=== PATIENT | male | born 1940 | race Caucasian/White ===

== ENCOUNTER → 2021-02-27 | Outpatient (CLI) | payer MEDICARE, OTHER | END | disposition home or self-care (01) | LOC: CARD 12:00 | PROVIDERS: ATTEND Nurse Practitioner Family | DX: I35.1 Nonrheumatic aortic (valve) insufficiency (principal); G45.9 Transient cerebral ischemic attack, unspecified; R09.89 Other specified symptoms and signs involving the circulatory and respiratory systems; R41.3 Other amnesia ==

== ENCOUNTER → 2021-02-28 | Outpatient (CLI) | payer MEDICARE, OTHER | END | disposition home or self-care (01) | LOC: US 03:48 | PROVIDERS: ATTEND Nurse Practitioner Family | DX: G45.9 Transient cerebral ischemic attack, unspecified (principal); R41.3 Other amnesia; R09.89 Other specified symptoms and signs involving the circulatory and respiratory systems ==

== ENCOUNTER → 2021-11-18 | Outpatient (CLI) | payer MEDICARE, OTHER | END | disposition home or self-care (01) | LOC: RAD 14:20 | PROVIDERS: ATTEND Nurse Practitioner Family | DX: U07.1 COVID-19 (principal) ==

== ENCOUNTER → 2022-07-06 | Outpatient (CLI) | payer MEDICARE, OTHER ==
[2022-07-06 10:46] LABS: BASO % 0.3 % (0.0-1.0); EOS # 0.1 10*3/uL (0.0-0.4); EOS % 1.8 % (1.0-4.0); HEMATOCRIT 34.6 % (42.0-52.0); LYMPH # 0.8 10*3/uL (1.3-4.4); LYMPH % 21.4 % (27.0-41.0); MEAN CELL VOLUME 92.8 fl (80.0-94.0); MEAN CORPUSCULAR HGB 29.5 pg (27.0-31.0); MEAN CORPUSCULAR HGB CONC 31.8 g/dl (33.0-37.0); MONO # 0.2 10*3/uL (0.1-1.0); MONO % 5.7 % (3.0-9.0); NEUT # 2.7 10*3/uL (2.3-7.9); NEUT % 70.3 % (47.0-73.0); PLATELET COUNT AUTOMATED 195 10*3/uL (130-400); RED BLOOD COUNT 3.73 10*6/uL (4.50-5.90); WHITE BLOOD COUNT 3.8 10*3/uL (4.8-10.8)
[2022-07-06 10:53] LABS: ALKALINE PHOSPHATASE 92 U/L (46-116); BUN 12 mg/dl (9-23); CHLORIDE 103 mmol/L (98-107); CHOLESTEROL 109 mg/dL (<200); LDL CHOLESTEROL 59 mg/dL (9-159); SGPT/ALT 29 U/L (10-49); TOTAL PROTEIN 7.3 gm/dL (6.0-8.0); TRIGLYCERIDES 120 mg/dl (<150)
== END | disposition home or self-care (01) ==
LOC: LAB 10:00
PROVIDERS: ATTEND Nurse Practitioner Family
DX: E78.49 Other hyperlipidemia (principal); N52.9 Male erectile dysfunction, unspecified; J30.9 Allergic rhinitis, unspecified; D50.9 Iron deficiency anemia, unspecified

== ENCOUNTER → 2023-06-09 | Outpatient (CLI) | payer MEDICARE, OTHER ==
[2023-06-09 13:35] LABS: BASO % 0.3 % (0.0-1.0); EOS # 0.1 10*3/uL (0.0-0.4); EOS % 1.6 % (1.0-4.0); HEMATOCRIT 36.8 % (42.0-52.0); LYMPH % 33.4 % (27.0-41.0); MEAN CELL VOLUME 95.3 fl (80.0-94.0); MEAN CORPUSCULAR HGB 31.3 pg (27.0-31.0); MEAN CORPUSCULAR HGB CONC 32.9 g/dl (33.0-37.0); MEAN PLATELET VOLUME 10.2 fl (9.6-12.3); MONO # 0.2 10*3/uL (0.1-1.0); MONO % 7.1 % (3.0-9.0); NEUT # 1.8 10*3/uL (2.3-7.9); NEUT % 57.3 % (47.0-73.0); PLATELET COUNT AUTOMATED 133 10*3/uL (130-400); RED BLOOD COUNT 3.86 10*6/uL (4.50-5.90); RED CELL DISTRI WIDTH 12.6 % (0-14.5); WHITE BLOOD COUNT 3.1 10*3/uL (4.8-10.8)
== END | disposition home or self-care (01) ==
LOC: LAB 12:30
PROVIDERS: ATTEND Nurse Practitioner Family
DX: D50.9 Iron deficiency anemia, unspecified (principal); J30.9 Allergic rhinitis, unspecified; R79.89 Other specified abnormal findings of blood chemistry; M25.511 Pain in right shoulder; G89.29 Other chronic pain; M25.512 Pain in left shoulder

== ENCOUNTER → 2023-08-23 | Outpatient (CLI) | payer MEDICARE, OTHER | END | disposition home or self-care (01) | LOC: LAB 08-20 11:22 | PROVIDERS: ATTEND Nurse Practitioner Family | DX: R19.7 Diarrhea, unspecified (principal) ==

== ENCOUNTER → 2023-08-24 | Outpatient (CLI) | payer MEDICARE, OTHER | END | disposition home or self-care (01) | LOC: LAB 07:08 | PROVIDERS: ATTEND Nurse Practitioner Family | DX: R19.7 Diarrhea, unspecified (principal) ==

== ENCOUNTER → 2023-08-25 | Outpatient (CLI) | payer MEDICARE, OTHER | END | disposition home or self-care (01) | LOC: LAB 02:49 | PROVIDERS: ATTEND Nurse Practitioner Family | DX: R19.7 Diarrhea, unspecified (principal) ==

== ENCOUNTER → 2023-09-22 | Outpatient (CLI) | payer MEDICARE, OTHER ==
[2023-09-22 16:15] LABS: EOS # 0.1 10*3/uL (0.0-0.4); EOS % 3.2 % (1.0-4.0); HEMATOCRIT 33.7 % (42.0-52.0); LYMPH # 0.9 10*3/uL (1.3-4.4); LYMPH % 33.1 % (27.0-41.0); MEAN CELL VOLUME 94.9 fl (80.0-94.0); MEAN CORPUSCULAR HGB 32.4 pg (27.0-31.0); MEAN CORPUSCULAR HGB CONC 34.1 g/dl (33.0-37.0); MEAN PLATELET VOLUME 10.6 fl (9.6-12.3); MONO # 0.2 10*3/uL (0.1-1.0); MONO % 6.4 % (3.0-9.0); NEUT # 1.6 10*3/uL (2.3-7.9); NEUT % 56.9 % (47.0-73.0); PLATELET COUNT AUTOMATED 121 10*3/uL (130-400); RED BLOOD COUNT 3.55 10*6/uL (4.50-5.90); RED CELL DISTRI WIDTH 13.2 % (0-14.5); WHITE BLOOD COUNT 2.8 10*3/uL (4.8-10.8)
[2023-09-22 16:34] LABS: ALKALINE PHOSPHATASE 99 U/L (46-116); BUN 15 mg/dl (9-23); CHLORIDE 103 mmol/L (98-107); CHOLESTEROL 141 mg/dL (<200); LDL CHOLESTEROL 46 mg/dL (9-159); POTASSIUM 3.8 mmol/L (3.4-5.1); SGPT/ALT 37 U/L (5-49); TOTAL PROTEIN 6.8 gm/dL (6.0-8.0); TRIGLYCERIDES 332 mg/dl (<150)
== END | disposition home or self-care (01) ==
LOC: LAB 14:47
PROVIDERS: ATTEND Nurse Practitioner Family
DX: I10 Essential (primary) hypertension (principal); D50.9 Iron deficiency anemia, unspecified; N52.9 Male erectile dysfunction, unspecified

== ENCOUNTER → 2023-10-04 | Outpatient (CLI) | payer MEDICARE, OTHER ==
[2023-10-04 08:03] LABS: BASO % 0.3 % (0.0-1.0); EOS # 0.1 10*3/uL (0.0-0.4); EOS % 2.7 % (1.0-4.0); HEMATOCRIT 34.5 % (42.0-52.0); LYMPH % 33.2 % (27.0-41.0); MEAN CELL VOLUME 96.9 fl (80.0-94.0); MEAN PLATELET VOLUME 10.5 fl (9.6-12.3); MONO # 0.2 10*3/uL (0.1-1.0); NEUT # 1.7 10*3/uL (2.3-7.9); NEUT % 56.8 % (47.0-73.0); PLATELET COUNT AUTOMATED 138 10*3/uL (130-400); RED BLOOD COUNT 3.56 10*6/uL (4.50-5.90); RED CELL DISTRI WIDTH 12.9 % (0-14.5)
== END ==
LOC: LAB 07:34
PROVIDERS: ATTEND Nurse Practitioner Family
DX: R79.89 Other specified abnormal findings of blood chemistry (principal)

== ENCOUNTER → 2024-01-18 | Outpatient (CLI) | payer MEDICARE, OTHER ==
[2024-01-18 14:28] LABS: VITAMIN D, 25-HYDROXY 52.8 ng/mL (30-100)
== END | disposition home or self-care (01) ==
LOC: LAB 13:14
PROVIDERS: ATTEND Nurse Practitioner Family
DX: E83.52 Hypercalcemia (principal); D72.9 Disorder of white blood cells, unspecified; D50.9 Iron deficiency anemia, unspecified; R73.01 Impaired fasting glucose; J30.9 Allergic rhinitis, unspecified

== ENCOUNTER → 2024-09-25 | Outpatient (CLI) | payer MEDICARE, OTHER ==
[2024-09-25 12:34] LABS: MEAN CELL VOLUME 97.1 fl (80.0-94.0); MEAN CORPUSCULAR HGB 32.9 pg (27.0-31.0); MEAN CORPUSCULAR HGB CONC 33.9 g/dl (33.0-37.0); MEAN PLATELET VOLUME 10.8 fl (9.6-12.3); PLATELET COUNT AUTOMATED 141 10*3/uL (130-400); RED CELL DISTRI WIDTH 12.5 % (0-14.5); WHITE BLOOD COUNT 3.4 10*3/uL (4.8-10.8)
[2024-09-25 12:58] LABS: MANUAL DIFF REFLEX YES
[2024-09-25 13:04] LABS: TOTAL CELLS COUNTED 100 #CELLS
[2024-09-25 13:05] LABS: OVALOCYTES FEW
[2024-09-25 13:06] LABS: PLATELET SUFFICIENCY NORMAL (NORMAL)
[2024-09-25 13:23] LABS: ALKALINE PHOSPHATASE 112 U/L (46-116); BUN 16 mg/dl (9-23); CHLORIDE 101 mmol/L (98-107); CHOLESTEROL 131 mg/dL (<200); LDL CHOLESTEROL 71 mg/dL (9-159); POTASSIUM 4.4 mmol/L (3.4-5.1); SGPT/ALT 27 U/L (5-49); TOTAL PROTEIN 7.1 gm/dL (6.0-8.0); TRIGLYCERIDES 152 mg/dl (<150)
== END | disposition home or self-care (01) ==
LOC: LAB 12:10
PROVIDERS: ATTEND Nurse Practitioner Family
DX: E78.2 Mixed hyperlipidemia (principal); D50.9 Iron deficiency anemia, unspecified; N52.9 Male erectile dysfunction, unspecified; Z76.89 Persons encountering health services in other specified circumstances

== ENCOUNTER → 2025-02-15 | Outpatient (CLI) | payer MEDICARE, OTHER ==
[~2025-02-15] MED LIST: ALDACTONE25 MG PO; AMOXICILLIN500 M2 PO; ASPIRIN81 M1 PO; ATORVASTATIN CA20 M1 PO; JARDIANCE10 MG PO; LOSARTAN POTASS25 M1 PO; METOPROLOL SUCC25 M2 PO
[2025-02-15 15:55] LABS: BUN 18 mg/dl (9-23)
== END | disposition home or self-care (01) ==
LOC: LAB 11:09
PROVIDERS: ATTEND Nurse Practitioner Family
DX: E87.5 Hyperkalemia (principal)

== ENCOUNTER 2025-03-29 15:02 | Emergency (ER) | payer MEDICARE, OTHER ==
[~2025-03-29] VITALS: Wt 93.9 kg
[~2025-03-29 15:02] MED LIST changes: +LASIX20 MG PO
[2025-03-29 16:54] LABS: MEAN CELL VOLUME 102.8 fl (80.0-94.0); MEAN CORPUSCULAR HGB 33.1 pg (27.0-31.0); MEAN PLATELET VOLUME 12.7 fl (9.6-12.3); NUCLEATED RED BLOOD CELL 0.0 10*3/uL (0.0-0.0); NUCLEATED RED BLOOD CELL 1.4 % (0.0-0.0); PLATELET COUNT AUTOMATED 106 10*3/uL (130-400); RED CELL DISTRI WIDTH 16.8 % (0-14.5)
[2025-03-29 17:12] LABS: BUN 16 mg/dl (9-23); MANUAL DIFF REFLEX YES
[2025-03-29 17:17] LABS: PLATELET SUFFICIENCY LOW (NORMAL)
== END 2025-03-29 18:15 | disposition home or self-care (01) ==
LOC: ED 15:02
PROVIDERS: Nurse Practitioner Family
DX: R06.00 Dyspnea, unspecified (principal); I11.0 Hypertensive heart disease with heart failure; I50.9 Heart failure, unspecified; E78.5 Hyperlipidemia, unspecified; Z98.890 Other specified postprocedural states